=== PATIENT | male | born 1965 | race Caucasian/White ===

== ENCOUNTER 2016-12-07 14:31 | Emergency (ER) | payer OTHER ==
[~2016-12-07] VITALS: Ht 180.3 cm; Wt 95.5 kg
[2016-12-07 14:34] VITALS: BP 166/93; PULSE 92; TEMP 98.2
[2016-12-07] MEDS ORDERED: NORCO 325 MG-51 TAB PO (15:04)
[2016-12-07] MEDS ORDERED: CEPHALEXIN500 M1 PO (15:04)
[2016-12-07] MEDS ORDERED: BACTRIM DS 8001 TAB PO (15:04)
== END 2016-12-07 15:30 | disposition home or self-care (01) ==
LOC: COL.ER 14:31
DX: L03.114 Cellulitis of left upper limb (principal)